=== PATIENT | male | born 1945 | race Hispanic/Latino ===

== ENCOUNTER 2018-04-02 08:10 | Outpatient (CLI) | payer MEDICARE, MEDICAID ==
--- NOTE | 2018-04-02 09:47 | CT ---
CT ABDOMEN AND PELVIS WITH IV CONTRAST: 04/02/2018 HISTORY: Iron-deficiency anemia. COMPARISON: None available. FINDINGS: There is a small pericardial effusion present. There are tiny bilateral pleural effusions with associated bibasilar atelectasis. There is a subpleu ral pulmonary nodule in the right middle lobe, which measures 4 mm. There is also a pleural-based, s ubcentimeter nodular density along the lower aspect of the major fissure, which questionably demonstr ates calcification. There is also an approximately 4 mm pleural-based nodular density at the left aiyana ng base. There is what appears to be atelectasis versus scarring in the region of the lingula, but t here is also a nodular density in this region, measuring approximately 9 mm. Post cholecystectomy changes are present. There is a hypodense lesion, superior pole, left kidney, which demonstrates an attenuation coefficien t most compatible with a renal cyst. Subcentimeter, nyv-uewud-sr-characterize, hypodense lesions are seen in mid portion of each kidney. No enhancing renal mass is seen, and there is no hydronephrosis present. The liver, spleen, pancreas, bilateral adrenal glands, abdominal aorta, and decompressed urinary blad greg demonstrate a normal CT appearance. The appendix is visualized and is normal in caliber. No free fluid, fluid collection, or lymphadenopathy is seen in the abdomen or pelvis. Minimal vascul ar calcifications are seen in the iliac arteries. There is a small, fat-containing left inguinal can al. Therer is partial visualization of a left-sided hydrocele. Degenerative changes are seen in the spine. IMPRESSION: 1. Small pulmonary nodules at each lung base, the majority of which appear to be pleural-based. A f ollow-up CT scan thorax is recommended in four to six months for further evaluation. 2. Small pericardial effusion. 3. Tiny bilateral pleural effusions. 4. Left renal cyst with subcentimeter, ukp-kjoki-re-characterize, hypodense lesions in each kidney. 5. Post cholecystectomy changes. 6. Partial visualization of a left-sided hydrocele. POS: [facility]
[2018-04-02] MEDS ORDERED: ISOVUE-370 76%-LOCM 1 ML ONE (11:25)
== END 2018-04-02 08:11 | disposition home or self-care (01) ==
LOC: BICCT 08:10
PROVIDERS: ATTEND Family Medicine
DX: D50.9 Iron deficiency anemia, unspecified (principal); R91.8 Other nonspecific abnormal finding of lung field; I31.3 Pericardial effusion (noninflammatory); J90 Pleural effusion, not elsewhere classified; N28.1 Cyst of kidney, acquired; N43.3 Hydrocele, unspecified; N28.9 Disorder of kidney and ureter, unspecified; Z90.49 Acquired absence of other specified parts of digestive tract
CPT/HCPCS: 74177; 82565; Q9966

== ENCOUNTER 2018-04-23 15:37 | Outpatient (CLI) | payer MEDICARE, MEDICAID ==
--- NOTE | 2018-04-23 16:40 | RAD ---
EXAM: CHEST TWO VIEWS 04/23/18 HISTORY: Dyspnea. FINDINGS: Minimal increased linear and interstitial markings bilaterally with some bilateral pleural thickening and/or pleural effusion, greater on the right side. Borderline cardiomegaly. No confluent pneumonia. IMPRESSION: Some bilateral pleural changes greater on the right side. Borderline cardiomegaly. Mild increased mar kings bilaterally without confluent pneumonia or overt edema. Atherosclerosis of the aorta. POS: [facility]
== END 2018-04-23 15:38 | disposition home or self-care (01) ==
LOC: RAD 15:37
PROVIDERS: ATTEND Internal Medicine Pulmonary Disease
DX: R06.00 Dyspnea, unspecified (principal); I51.7 Cardiomegaly; I70.0 Atherosclerosis of aorta; R91.8 Other nonspecific abnormal finding of lung field
CPT/HCPCS: 71046

== ENCOUNTER 2018-05-26 11:29 | Outpatient (CLI) | payer MEDICARE, MEDICAID ==
--- NOTE | 2018-05-26 11:50 | RAD ---
FRadiograph chest 2 views: 05/26/2018 HISTORY: 73-year-old male with dyspnea COMPARISON: 04/23/2018 FINDINGS: The previously demonstrated small right pleural effusion has decreased in volume. There are probably currently tiny bilateral pleural effusions. Cardiac size within normal limits. On the frontal view, p ericardial fat pad increases the transverse diameter of the cardiac shadow. No consolidation. No pneu mothorax. No pulmonary edema. IMPRESSION: Very Small bilateral pleural effusions, with interval decrease in volume. No acute pulmonary findings .
== END 2018-05-26 11:30 | disposition home or self-care (01) ==
LOC: RAD 11:29
PROVIDERS: ATTEND Internal Medicine Pulmonary Disease
DX: R06.00 Dyspnea, unspecified (principal); J90 Pleural effusion, not elsewhere classified
CPT/HCPCS: 71046

== ENCOUNTER 2018-12-22 13:38 | Outpatient (CLI) | payer MEDICARE, MEDICAID ==
--- NOTE | 2018-12-22 14:24 | RAD ---
EXAM: Two views chest PROVIDED CLINICAL HISTORY: History of pneumonia. Follow-up evaluation. Abnormal finding lung field. COMPARISON: 05/26/2018 FINDINGS: Cardiac silhouette is mildly enlarged and stable in size. Pulmonary vasculature is within normal limi ts. There is suggestion of a tiny right pleural effusion which does appear improved compared to prior exam. There is an area of scarring at the right lung base with minimal atelectasis at the left lung base. No consolidation is seen. Degenerative changes are again seen in the spine. Vascular calcifications are seen in the thoracic aorta. Surgical clips overlie the right upper quadrant. IMPRESSION: 1. Tiny right pleural effusion, but the pleural effusion does appear improved compared to prior study . 2. Mild cardiomegaly. 3. Linear scarring right lung base.
--- NOTE | 2018-12-22 14:34 | RAD ---
LUMBAR SPINE TWO VIEWS: HISTORY: Back pain. Left leg pain. FINDINGS: Multilevel degenerative changes are present. No fracture, subluxation or bony destruction is seen. IMPRESSION: Lumbar spondylosis. POS: [facility]
--- NOTE | 2018-12-22 14:35 | RAD ---
AP PELVIS: Date: 12/22/18 HISTORY: Left leg pain. FINDINGS/IMPRESSION: There are mild degenerative changes in the hip joints. No acute fracture, dislocation, or bony destru ction is seen. POS: [facility]
--- NOTE | 2018-12-22 14:39 | RAD ---
LEFT HIP TWO VIEWS: HISTORY: Left leg pain. Back pain. FINDINGS: Mild degenerative changes are present. no fracture, dislocation or bony destruction is seen. There is a small sclerotic focus and an adjacent low density lesion with circumferential sclerosis in the nec k of the left femur, which has a benign appearance and is stable since the CT scan of 04/30/2018. POS: OFF
== END 2018-12-22 13:39 | disposition home or self-care (01) ==
LOC: BICRAD 13:38
PROVIDERS: ATTEND Family Medicine
DX: M54.32 Sciatica, left side (principal); R91.8 Other nonspecific abnormal finding of lung field; R93.5 Abnormal findings on diagnostic imaging of other abdominal regions, including retroperitoneum; M16.12 Unilateral primary osteoarthritis, left hip; M47.816 Spondylosis without myelopathy or radiculopathy, lumbar region; J90 Pleural effusion, not elsewhere classified; I51.7 Cardiomegaly; J98.4 Other disorders of lung
CPT/HCPCS: 71046; 72100; 72170

== ENCOUNTER 2018-12-23 13:11 | Outpatient (CLI) | payer MEDICARE, MEDICAID ==
[~2018-12-23 13:11] MED LIST: ISOVUE-370 76%-LOCM 1 ML ONE
--- NOTE | 2018-12-23 14:19 | CT ---
EXAM: Abdomen and pelvic CT scan with contrast: HISTORY: Abdominal pain COMPARISON: 04/02/2018 FINDINGS: Previously noted pericardial fluid and bilateral pleural effusions have markedly decreased in size as well as bibasilar linear and nodular parenchymal changes. There are some persistent small nodules. None of these show any increased growth. Liver: Unremarkable. Gallbladder:Status post cholecystectomy. Pancreas:Unremarkable Spleen:Unremarkable. Adrenal glands:Unremarkable. Kidneys:No renal calculus or acute obstruction. Small stable renal hypodensities evidence for cysts up to 1.8 cm. No evidence for bowel obstruction. No CT evidence for acute appendicitis. The urinary bladder is unremarkable. Reproductive system:Unremarkable No abscess, adenopathy, or abnormal fluid collection within the abdomen or pelvis. Partially visualized left hydrocele. IMPRESSION: Clearing of the previously noted bilateral pleural effusions and pericardial effusion as well as some improvement in the linear and nodular bibasilar pulmonary parenchymal changes. Stable bilateral renal hypodensities. Other findings as above.
== END 2018-12-23 13:12 | disposition home or self-care (01) ==
LOC: BICCT 13:11
PROVIDERS: ATTEND Family Medicine
DX: M54.32 Sciatica, left side (principal); R93.5 Abnormal findings on diagnostic imaging of other abdominal regions, including retroperitoneum
CPT/HCPCS: 74177; 82565; Q9966

== ENCOUNTER 2018-12-29 10:33 | Outpatient (CLI) | payer MEDICARE, MEDICAID ==
--- NOTE | 2018-12-29 12:59 | BD ---
DEXA BONE DENSITY EXAM: HISTORY: A 73-year-old male with osteopenia. Screening for osteoporosis. FINDINGS: Lumbar Spine: BMD (g/cm2) L1 1.047 T-Score: -0.2 L2 1.109 T-Score: 0.1 L3 1.159 T-Score: 0.5 L4 1.059 T-Score: -0.3 L1-L4 1.096 T-Score: 0.0 Femoral Neck: 0.782 T-Score: -1.1 Total Femur: 1.038 T-Score: 0.0 Impression: Osteopenia. This patient has a 10-year WHO fracture risk of a major osteoporotic fracture of 5.6% an d of a hip fracture of 1.1%. POS: [facility]
== END 2018-12-29 10:34 | disposition home or self-care (01) ==
LOC: BICMAMMO 10:33
PROVIDERS: ATTEND Family Medicine
DX: Z13.820 Encounter for screening for osteoporosis (principal); M54.32 Sciatica, left side; R93.5 Abnormal findings on diagnostic imaging of other abdominal regions, including retroperitoneum; R91.8 Other nonspecific abnormal finding of lung field; M85.80 Other specified disorders of bone density and structure, unspecified site
CPT/HCPCS: 77080

== ENCOUNTER 2020-07-04 09:34 | Outpatient (CLI) | payer MEDICARE, MEDICAID | END 2020-07-04 09:35 | disposition home or self-care (01) | LOC: BICRAD 09:34 | PROVIDERS: ATTEND Family Medicine | DX: S99.922A Unspecified injury of left foot, initial encounter (principal); M79.672 Pain in left foot ==